=== PATIENT | female | born 1990 | race Caucasian/White ===

== ENCOUNTER 2019-07-28 00:20 | Inpatient (IN) | payer OTHER ==
[~2019-07-28] VITALS: Ht 157.5 cm; Wt 1.8 kg
[~2019-07-28 00:20] MED LIST: NO TOMA MED.; PERCOCET 5/3251 TAB PO; PRENATAL CAPLE1 EACH PO; SURFAK240 M1 PO; SYNTHROID88 MCG PO; [UNRECOGNIZED DRUG - OTHER]
[2019-07-28] MEDS ORDERED: PRENATAL TABLE1 EAC1 PO (01:54)
[2019-07-30] MEDS ORDERED: KETO10TA2 PO (09:19)
[2019-07-30] MEDS ORDERED: OXYC1TAB9 PO (09:20)
== END 2019-07-30 13:33 | disposition home or self-care (01) | DRG 786 ==
LOC: LDR 00:20 → OB/GYN 03:03
PROVIDERS: ADMIT Obstetrics & Gynecology
PROC: 4A1HXCZ Monitoring of Products of Conception, Cardiac Rate, External Approach (ICD-10-PCS; 2019-07-28)
PROC: 10D00Z1 Extraction of Products of Conception, Low, Open Approach (ICD-10-PCS; principal; 2019-07-28 07:00)
DX: O60.14X0 Preterm labor third trimester with preterm delivery third trimester, not applicable or unspecified (principal); O44.33 Partial placenta previa with hemorrhage, third trimester; Z3A.31 31 weeks gestation of pregnancy; Z37.0 Single live birth

== ENCOUNTER 2020-06-27 11:50 | Emergency (ER) | payer OTHER ==
[~2020-06-27] VITALS: Ht 157.5 cm; Wt 59.9 kg
[~2020-06-27 11:50] MED LIST changes: +KETO10TA2 PO; +OXYC1TAB9 PO; +PRENATAL TABLE1 EAC1 PO
[2020-06-27] MEDS ORDERED: ULTRAM50 MG PO (19:53)
== END 2020-06-27 20:13 | disposition home or self-care (01) ==
LOC: ER 11:50
DX: N83.291 Other ovarian cyst, right side (principal); R10.2 Pelvic and perineal pain

== ENCOUNTER 2023-09-16 17:06 | Emergency (ER) | payer OTHER ==
[~2023-09-16] VITALS: Ht 157.5 cm; Wt 68.0 kg
[~2023-09-16 17:06] MED LIST changes: +ULTRAM50 MG PO
[2023-09-16] MEDS ORDERED: SYNTHROID112 MCG PO (17:34)
[2023-09-16] MEDS ORDERED: 0.9 % SODIUM CHLORIDE 500 ML IV ONE (18:30)
[2023-09-16] MEDS ORDERED: FAMOtidine 10 MG/ML (4ML VIAL) IV ONE (18:30)
[2023-09-16] MEDS ORDERED: ONDANSETRON HCL 2 MG/ML VIAL IV ONE (18:30)
[2023-09-16 18:57] LABS: HEMATOCRIT 40.6 % (36.0-45.00); HEMOGLOBIN 13.6 g/dL (12.0-15.00); MEAN CELL VOLUME 83.4 fL (80.00-100.00); MEAN CORPUSCULAR HEMOGLOBIN 27.9 pg (27.00-32.0); MEAN CORPUSCULAR HGB CONC 33.4 g/dl (32.0-36.0); PLATELET COUNT 231 K/uL (150-450); RED BLOOD COUNT 4.87 M/uL (4.00-6.00); RED CELL DISTRIBUTION WIDTH 14.9 % (11.5-14.5)
[2023-09-16 19:16] LABS: ALBUMIN 3.6 gm/dL (3.4-5.0); ALKALINE PHOSPHATASE 75 U/L (50-136); ALT/SGPT 22 U/L (12-78); AMYLASE 44 U/L (25-115); ANION GAP 6 (10.0-20.0); AST/SGOT 16 U/L (15-37); BILIRUBIN TOTAL 0.21 mg/dL (0.3-1.2); BLOOD UREA NITROGEN 8 mg/dL (7-18); BUN CREA RATIO 13 (7.0-25.0); CALCIUM 8.5 mg/dL (8.5-10.1); CARBON DIOXIDE 27 mEq/L (21-32); CHLORIDE 106 mmol/L (98-107); CREATININE SERUM 0.63 mg/dL (0.55-1.02); GFR 107.54; GLOBULINA 4.2 G/DL (2.4-3.5); GLUCOSE FASTING 97 mg/dL (65-100); LIPASE 41 U/L (13-75); OSMOLALITY SERUM 270 MOSM/KG (275-295); POTASSIUM 3.39 mEq/L (3.5-5.1); SODIUM 136 mmol/L (136-145); TOTAL PROTEIN 7.8 gm/dL (6.4-8.2)
[2023-09-16 19:17] LABS: HCG QUANTITATIVE < 1 mUI/mL (1-3)
[2023-09-16 19:52] LABS: URINE APPEARANCE Cloudy; URINE BILIRRUBIN Negative (NEGATIVE); URINE BLOOD Small; URINE COLOR Yellow; URINE GLUCOSE Negative (NEGATIVE); URINE LEUKOCYTE Negative; URINE NITRATE Negative; URINE PROTEIN Negative (NEGATIVE); URINE UROBILINOGEN 0.2 E.U./dl
[2023-09-16 19:56] LABS: URINE BACTERIA 705.4 uL (0.0-1933); URINE EPITHELIAL CELLS 66.7 uL (0.0-38.8); URINE RBC 192.8 uL (0.0-20.8); URINE WBC 9.4 uL (0.0-23.2)
== END 2023-09-16 21:10 | disposition home or self-care (01) ==
LOC: ER 17:07
PROVIDERS: General Practice
DX: K52.89 Other specified noninfective gastroenteritis and colitis (principal); Z85.89 Personal history of malignant neoplasm of other organs and systems; E03.8 Other specified hypothyroidism